=== PATIENT | female | born 1975 | race Caucasian/White ===

== ENCOUNTER 2018-02-28 16:42 | Outpatient (REF) | payer BC, SELFPAY ==
--- NOTE | 2018-02-28 14:30 | PAPFT_PTH ---
PATIENT: Sivan Adan LOC: [facility] U#:[id number] AGE/SX: 42/F ROOM: RE02/28/[address]: HANNA Hess : 1975 BED: DIS: 02/28/2018 SPEC #: [id number] RECD: 02/28/18 17:24 STATUS: BILLY REBree #: [id number] PERI: 02/28/18 14:[address]: Anastasiya Melton DEPT: [facility] Cytology RECD BY: Cassandra Manley Tissues: 1 - CX/ENDOCX FOR PAP SMEARS Procedures: PAP THIN PREP/[facility] Screening HPV DNA PROBE Comments: [id number]
== END 2018-02-28 17:02 ==
LOC: LBN 16:42
PROVIDERS: Visit Provider Nurse Practitioner Family
DX: Z12.4 Encounter for screening for malignant neoplasm of cervix (principal); Z11.51 Encounter for screening for human papillomavirus (HPV)
CPT/HCPCS: 88142; 87624

== ENCOUNTER 2022-01-01 17:47 | Outpatient (REF) | payer BC, SELFPAY | END 2022-01-01 17:48 | disposition home or self-care (01) | LOC: LBN 17:47 | PROVIDERS: Visit Provider Advanced Practice Midwife | DX: N89.8 Other specified noninflammatory disorders of vagina (principal); R30.0 Dysuria | CPT/HCPCS: 87077; 87086; 87480; 87510; 87660 ==

== ENCOUNTER 2023-07-08 11:33 | Outpatient (REF) | payer BC, SELFPAY ==
--- NOTE | 2023-07-08 10:20 | PAPFT_PTH ---
PATIENT: Sivan Adan LOC: [facility] U#:[id number] AGE/SX: 48/F ROOM: RE07/08/[address]: Lilly Ng MD : 1975 BED: DIS: 07/08/2023 SPEC #: [id number] RECD: 07/08/23 13:06 STATUS: BILLY REBree #: [id number] PERI: 07/08/23 10:[address]: Lilly Ng DEPT: [facility] Cytology RECD BY: Cassandra Manley ENTERED: 07/08/23 13:07 SP TYPE: PAPFT [place] DR: Unknown,Unknown Tissues: 1 - CX/ENDOCX FOR PAP SMEARS Procedures: PAP THIN PREP/[facility] Screening HPV DNA PROBE Comments: [id number]
== END 2023-07-08 11:34 | disposition home or self-care (01) ==
LOC: LBN 11:33
PROVIDERS: Visit Provider Obstetrics & Gynecology
DX: Z12.4 Encounter for screening for malignant neoplasm of cervix (principal)
CPT/HCPCS: 88142; 87624